=== PATIENT | male | born 1955 | race Caucasian/White ===

== ENCOUNTER → 2019-07-22 | Outpatient (CLI) | payer MEDICARE, MEDICAID ==
[~2019-07-22] MED LIST: LOSARTAN; SIMVASTATIN
== END | disposition home or self-care (01) ==
LOC: LAB 16:36
PROVIDERS: ATTEND Nurse Practitioner Family
DX: S63.075A Dislocation of distal end of left ulna, initial encounter (principal); M19.032 Primary osteoarthritis, left wrist; M79.89 Other specified soft tissue disorders; X58.XXXA Exposure to other specified factors, initial encounter; Y93.89 Activity, other specified; Y92.89 Other specified places as the place of occurrence of the external cause; Y99.8 Other external cause status
CPT/HCPCS: 73110

== ENCOUNTER → 2019-07-24 | Outpatient (CLI) | payer MEDICARE, MEDICAID | END | disposition home or self-care (01) | LOC: RAD 17:33 | PROVIDERS: ATTEND Nurse Practitioner Family | DX: S63.075A Dislocation of distal end of left ulna, initial encounter (principal); X58.XXXA Exposure to other specified factors, initial encounter; Y93.89 Activity, other specified; Y92.89 Other specified places as the place of occurrence of the external cause; Y99.8 Other external cause status | CPT/HCPCS: 73090 ==